=== PATIENT | female | born 1935 | race American Indian/Alaskan Native ===

== ENCOUNTER 2016-11-19 10:23 | Inpatient (IN) | payer MEDICARE ==
[2016-11-19 11:15] LABS: BASO # 0.1 K/uL (0.0-0.2); BASO % 0.8 % (0.0-2.0); EOS # 0.1 K/uL (0.0-0.7); EOS % 1.8 % (0.0-4.0); LYMPH # 1.9 K/uL (1.0-4.3); LYMPH % 28.9 % (20.0-40.0); MEAN CORPUSCULAR HEMOGLOBIN 31.4 pg (27.0-31.0); MEAN CORPUSCULAR HGB CONC 33.8 g/dL (33.0-37.0); MEAN PLATELET VOLUME 8.6 fL (7.2-11.7); MONO # 0.6 K/uL (0.0-0.8); NEUT # 3.9 K/uL (1.8-7.0); NEUT % 59.5 % (50.0-75.0); RBC 4.15 Mil/uL (3.80-5.20); RED CELL DISTRIBUTION WIDTH 13.7 % (11.5-14.5); WHITE BLOOD COUNT 6.5 K/uL (4.8-10.8)
[2016-11-19 11:25] LABS: PROTHROMBIN TIME 10.8 SECONDS (9.7-12.2)
--- NOTE | 2016-11-19 11:25 | C.PDOC ---
History Of Present Illness Patient BIBA for evaluation of difficulty ambulating/ataxia since approx 9am yesterday morning. Patient states when she stands up and tries to walk, she is unable to walk in a straight line, begins to fall to the side. She denies sensation of room spinning around her, lightheadedness, visual changes, facial droop, slurred speech, extremity weakness, sensory changes, chest pain, SOB, palpitations, ear pain, sinus pain/pressure. PMhx of HTN, hypothyroidism, hyperlipidemia, CAD with stent. Time Seen by Provider: 11/19/16 10:35 Chief Complaint (Nursing): Dizziness/Lightheaded History Per: Patient History/Exam Limitations: no limitations Onset/Duration Of Symptoms: Days (1) Current Symptoms Are (Timing): Still Present Activity At Onset Of Symptoms: Had Just Stood up Associated Symptoms Preceding Syncopal Episode: No Predromal Symptoms (Sudden Onset) Past Medical History Reviewed: Historical Data, Nursing Documentation, Vital Signs Vital Signs: Last Vital Signs Temp 97.5 F L 11/21/16 08:20 Pulse 95 H 11/21/16 08:20 Resp 20 11/21/16 08:20 BP 136/80 11/21/16 08:20 Pulse Ox 100 11/21/16 08:20 - Medical History PMH: HTN, Hypothyroidism Family History: States: No Known Family Hx - Social History Hx Alcohol Use: No Hx Substance Use: No - Immunization History Hx Tetanus Toxoid Vaccination: Yes Hx Influenza Vaccination: Yes Hx Pneumococcal Vaccination: Yes Review Of Systems Except As Marked, All Systems Reviewed And Found Negative. Constitutional: Negative for: Fever, Chills ENT: Negative for: Ear Pain Cardiovascular: Negative for: Chest Pain, Palpitations Respiratory: Negative for: Cough, Shortness of Breath Gastrointestinal: Negative for: Nausea, Vomiting, Abdominal Pain Neurological: Positive for: Incoordination. Negative for: Weakness, Numbness, Change in Speech, Confusion, Seizures, Altered Mental Status, Headache, Dizziness Physical Exam - Physical Exam Appears: Well, Non-toxic, No Acute Distress Skin: Normal Color, Warm, Dry, No Rash Head: Atraumatic, Normacephalic Eye(s): bilateral: Normal Inspection, PERRL (no nystagmus ), EOMI Ear(s): Bilateral: Normal Oral Mucosa: Moist Neck: Normal, Normal ROM Chest: Symmetrical Cardiovascular: Rhythm Regular Respiratory: Normal Breath Sounds, No Rales, No Rhonchi, No Wheezing Gastrointestinal/Abdominal: Normal Exam, Bowel Sounds, No Tenderness Extremity: Normal ROM, No Pedal Edema, No Calf Tenderness, No Deformity Neurological/Psych: Oriented x3, Normal Speech, Normal Cognition, Normal Cranial Nerves, No Cerebellar Signs, Normal Motor, Normal Sensation, Normal Reflexes, No Dysarthria, Other (noemal finger to nose ) Gait: Unsteady (ataxic gait) ED Course And Treatment - Laboratory Results Result Diagrams: 11/19/16 11:08 11/20/16 07:17 ECG: Interpreted By Me, Viewed By Me (NSR 60 bpm, left axis deviation, Q waves III, aVF, no acute ST/T wave changes) ECG Interpretation: Abnormal O2 Sat by Pulse Oximetry: 100 (RA) Pulse Ox Interpretation: Normal - CT Scan/US CT HEAD Other Rad Studies (CT/US): Read By Radiologist, Radiology Report Reviewed CT/US Interpretation: Accession No. : [id number]. Patient Name / ID : RUPINDER DELEON / [id number]. Exam Date : 11/19/2016 11:21:14 ( Approved ). Study Comment : Sex / Age : F / [id number]. Creator : PATIENCE MEDRANO MD. Dictator : PATIENCE MEDRANO MD. Lighting Designer : Surg Rn : PATIENCE MEDRANO MD. Approver2 : Report Date : 11/19/2016 11:57:57. My Comment : . PROCEDURE: CT HEAD WITHOUT CONTRAST. HISTORY: ATAXIA NEW ONSET. COMPARISON: None available. TECHNIQUE: Axial computed tomography images were obtained through the head/ brain without intravenous contrast. Radiation dose: Total exam DLP = 821.50 mGy-cm. This CT exam was performed using one or more of the following dose reduction techniques: Automated exposure control, adjustment of the mA and/or kV according to patient size, and/or use of iterative reconstruction technique. FINDINGS: HEMORRHAGE: No intracranial hemorrhage. BRAIN: There are severe chronic microangiopathic changes. There is no mass, mass effect or abnormal extra-axial fluid collection. There are coarse atherosclerotic calcifications in the cavernous carotid arteries. VENTRICLES: There is mild age-related global parenchymal volume loss and proportionate enlargement of the ventricles and cortical sulci. CALVARIUM: The skull base and calvarium are normal. PARANASAL SINUSES: Predominantly clear. MASTOID AIR CELLS: Predominantly clear. OTHER FINDINGS: None. IMPRESSION: No acute intracranial abnormality.If there is a persistent focal neurologic deficit and an ongoing clinical concern for acute infarction, an MRI of the brain without intravenous contrast would be a more sensitive modality for evaluation of hyperacute/acute ischemic infarction. Severe chronic microangiopathic changes and mild age- related global parenchymal volume loss. Progress Note: Blood work, CT head, EKG ordered and reviewed. MRI stroke protocol ordered - result will be followed by admitting doctor. Patient given PO ASA after CT head (-) for bleed. Discussed patient with Dr. Ochoa, who agrees with admission to his service for ataxia, r/o CVA. - Physician Consult Information Physician Contacted: Jose Mohr Outcome Of Conversation: Discussed patient with her PMD, he requests admission under Dr. Sadie Ochoa with Dr. Delvin Redman for neurology. Pending call back. NIHSS Stroke Scale - Date/Time Evaluation Performed Date Performed: 11/19/16 Time Performed: 10:30 - How Severe is the Stoke Level of Consciousness: 0=Alert LOC to Questions: 0=Both comments correct LOC to commands: 0=Obeys both correctly Best Gaze: 0=Normal Visual: 0=No visual loss Facial: 0=Normal Motor Arm - Left: 0=No drift Motor Arm - Right: 0=No drift Motor Leg - Left: 0=No drift Motor Leg - Right: 0=No drift Limb Ataxia: 1=Present Upper or Lower Sensory: 0=Normal Best Language: 0=No aphasia Dysarthia: 0=Normal articulation Extinction & Inattention (Neglect): 0=Normal, no object Score: 1 Severity Of Stroke: 1-4= Minor Stroke rTPA Inclusion/Exclusion - Refusal of Treatment Patient Refused Treatment: No - Inclusion Criteria for Altepase Patient is 18 years or Older: Yes The Clinical Diagnosis of Ischemic Stroke That is Causing a Potentially Disabling Neurological Deficit: Yes Time of Onset is Well Established to be Less Than 270 Minute Before Treatment Would Begin: No Risk/Benefit Discussed With Patient/Family Member Present: No Disposition - Disposition Disposition: HOSPITALIZED Disposition Time: 14:21 Condition: STABLE - Clinical Impression Clinical Impression: Ataxia, CVA (cerebral vascular accident)
[2016-11-19 11:31] LABS: ALBUMIN 3.9 g/dL (3.5-5.0)
[2016-11-19 11:34] LABS: ALB/GLOB RATIO 1.4 (1.0-2.1); ALT/SGPT 29 U/L (9-52); AST/SGOT 21 U/L (14-36); BLOOD UREA NITROGEN 18 mg/dL (7-17); CALCIUM 9.8 mg/dl (8.6-10.4); GFR AFRICAN-AMERICAN > 60; GFR NON-AFRICAN AMERICAN 53
[2016-11-19 11:35] LABS: HDL CHOLESTEROL 29 mg/dL (30-70)
[2016-11-19 11:43] LABS: CK-MB 0.77 ng/mL (0.0-3.38)
[2016-11-19 11:48] LABS: LDL CHOLESTEROL 62 mg/dL (0-129)
--- NOTE | 2016-11-19 11:59 | CT ---
PROCEDURE: CT HEAD WITHOUT CONTRAST. HISTORY: ATAXIA NEW ONSET COMPARISON: None available. TECHNIQUE: Axial computed tomography images were obtained through the head/brain without intravenous contrast. Radiation dose: Total exam DLP = 821.50 mGy-cm. This CT exam was performed using one or more of the following dose reduction techniques: Automated exposure control, adjustment of the mA and/or kV according to patient size, and/or use of iterative reconstruction technique. FINDINGS: HEMORRHAGE: No intracranial hemorrhage. BRAIN: There are severe chronic microangiopathic changes. There is no mass, mass effect or abnormal extra-axial fluid collection. There are coarse atherosclerotic calcifications in the cavernous carotid arteries. VENTRICLES: There is mild age-related global parenchymal volume loss and proportionate enlargement of the ventricles and cortical sulci. CALVARIUM: The skull base and calvarium are normal. PARANASAL SINUSES: Predominantly clear. MASTOID AIR CELLS: Predominantly clear. OTHER FINDINGS: None. IMPRESSION: No acute intracranial abnormality.If there is a persistent focal neurologic deficit and an ongoing clinical concern for acute infarction, an MRI of the brain without intravenous contrast would be a more sensitive modality for evaluation of hyperacute/acute ischemic infarction. Severe chronic microangiopathic changes and mild age-related global parenchymal volume loss.
[2016-11-19] MEDS ORDERED: Aspirin 325 mg EC Tablets PO ONE (14:49)
--- NOTE | 2016-11-19 16:31 | MRI ---
PROCEDURE: MRI BRAIN WITHOUT CONTRAST HISTORY: ataxia, r/o cva COMPARISON: Noncontrast head CT performed the same day TECHNIQUE: Multiplanar, multisequence MR images of the brain were obtained without intravenous contrast enhancement. FINDINGS: HEMORRHAGE: None DWI: There is a focal round area of restricted diffusion involving the medial aspect of the left brachium pontis and lateral aspect of the left superior cerebellar peduncle with corresponding increased T2/FLAIR signal. BRAIN PARENCHYMA: There are severe chronic microangiopathic changes. There is no mass, mass effect or abnormal extra-axial fluid collection. The midline sagittal structures are normal. VENTRICLES: There is moderate age-related global parenchymal volume loss and proportionate enlargement of the ventricles and cortical sulci. CRANIUM: There is normal bone marrow signal pattern. ORBITS: Grossly unremarkable. PARANASAL SINUSES/MASTOIDS: Predominantly clear. VASCULAR SYSTEM: There are normal signal voids in the larger intracranial arteries. OTHER FINDINGS: None. IMPRESSION: 1. Findings are consistent with acute infarction involving the medial aspect of the left brachium pontis and lateral aspect of the left superior cerebellar peduncle. 2. Severe chronic microangiopathic changes and moderate age-related global parenchymal volume loss. Important findings were discussed with nurse Robson Cuellar 11/19/2016 at 4:25 p.m.
[2016-11-19] MEDS: (Novolog) Insulin Aspart, Recombinant 100 u/ml 10 ml vial SC SCH (21:33)
--- NOTE | 2016-11-20 00:48 | CON ---
HISTORY OF PRESENT ILLNESS: This is a 81-year-old black female with past medical history of hypertension, hypothyroidism, came here with ambulating. Symptoms started yesterday in the morning. When the patient tried to walk, she was unable to walk straight line and was swing to one side. Denies any spinning sensation. No lightheadedness. No slurred speech. No weakness. PAST MEDICAL HISTORY: Hypertension, hypothyroidism, hyperlipidemia, coronary artery disease . FAMILY HISTORY: Unknown. SOCIAL HISTORY: Does not smoke, does not drink. REVIEW OF SYSTEMS: A 10-point review of system was negative except ataxia. PHYSICAL EXAMINATION VITAL SIGNS: Blood pressure 165/70. HEENT: Normocephalic and atraumatic. NECK: Supple. NEUROLOGIC: Awake,alert and oriented x3. No aphasia. Cranial nerves II through XII tested. Pupil reactive. EOM intact. Visual hebert full. No facial asymmetry. Tongue midline. Motor examination, moves all the extremities spontaneously. Deep tendon reflexes 1+. Both plantars are downgoing. Sensory appears intact. Cerebellar and Gait deferred. LABORATORY DATA: WBC 6.5, hemoglobin 13, hematocrit 38.6, platelet 182. Sodium 141, potassium 4.7, chloride 104, CO2 of 18, glucose 90, BUN 18, creatinine 1. IMPRESSION: Brain stem infarct and MRI shows consistent acute infarction involving medial aspect of the left brachium and lateral aspect of the left superior cerebellar peduncle and that is what causing ataxia. PLAN: The patient needs carotid Doppler and Plavix 75 mg and physical therapy for ambulation. Thank you, we will follow up. Delmer Redman MD
[2016-11-20] MEDS: Levothyroxine 25 MCG TAB PO SCH (05:34)
[2016-11-20] MEDS ORDERED: Levothyroxine 50 MCG TAB PO SCH (06:30)
[2016-11-20] MEDS: (Novolog) Insulin Aspart, Recombinant 100 u/ml 10 ml vial SC SCH ×4 (07:24→21:30)
[2016-11-20 07:49] LABS: ALB/GLOB RATIO 1.4 (1.0-2.1); ALBUMIN 3.8 g/dL (3.5-5.0); ALT/SGPT 24 U/L (9-52); AST/SGOT 20 U/L (14-36); BLOOD UREA NITROGEN 13 mg/dL (7-17); CALCIUM 9.4 mg/dl (8.6-10.4); GFR AFRICAN-AMERICAN > 60; GFR NON-AFRICAN AMERICAN > 60
--- NOTE | 2016-11-20 08:50 | CP.PCM.HP ---
History of Present Illness - History of Present Illness History of Present Illness: 81 y/o female with NIDDM, hyperlipidemia, Hypothyroidism and HTN. patient on 8 morning suddenly noted to be " imbalance". She was sent to ER and ER was noted to be ataxic. Pt admitted c/o likely will fall and hurt herself. MRI (+) small CVA on L brainstem/ cerebellum Present on Admission - Present on Admission Any Indicators Present on Admission: Yes History of DVT/PE: No History of Uncontrolled Diabetes: No Urinary Catheter: No Decubitus Ulcer Present: No Review of Systems - Review of Systems Systems not reviewed;Unavailable: Acuity of Condition - Constitutional Constitutional: Headache, Weakness. absent: Anorexia, Chills, Malaise, Weight Loss - EENT Eyes: absent: Requires Corrective Lenses, Sees Flashes, Spots in Vision Ears: absent: Decreased Hearing, Ear Discharge, Ear Pain Nose/Mouth/Throat: Sinus Pressure. absent: Nasal Congestion, Post Nasal Drip, Bleeding Gums, Hoarsness, Odynophagia, Neck Pain - Cardiovascular Cardiovascular: absent: Chest Pain, Diaphoresis, Dyspnea, Edema, Irregular Heart Rhythm, Leg Edema, Palpitations - Respiratory Respiratory: absent: Cough, Hemoptysis, Dyspnea on Exertion, Snoring, Chest Congestion, Excessive Mucous Production, Change in Mucous Color - Gastrointestinal Gastrointestinal: absent: Coffee Ground Emesis, Constipation, Heartburn, Hematochezia, Nausea - Genitourinary Genitourinary: absent: Difficulty Urinating, Dysuria, Hematuria, Nocturia - Reproductive: Female Reproductive:Female: absent: Light Menses, Dysmenorrhea, Dyspareunia, Sexual Dysfunction - Musculoskeletal Musculoskeletal: Abnormal Gait. absent: Atrophy, Back Pain, Joint Swelling, Loss of Height, Myalgias - Integumentary Integumentary: absent: Bleeding Lesions, Changing Lesions, Rash, Skin Pain, Sores - Neurological Neurological: Abnormal Gait, Disequilibrium, Dizziness, Lack of Coordination. absent: Abnormal Hearing, Numbness, Frequent Falls, Headaches, Loss of Vision, Radicular Pain - Psychiatric Psychiatric: Anxiety. absent: Confusion, Depression, Hopelessness, Panic Attacks, Suicidal Ideation Past Patient History - Infectious Disease Hx of Infectious Diseases: None - Past Medical History & Family History Past Medical History?: Yes - Past Social History Smoking Status: Former Smoker - CARDIAC Hx Hypertension: Yes Other/Comment: CAD - ENDOCRINE/METABOLIC Hx Diabetes Mellitus Type 2: Yes Hx Hypothyroidism: Yes - MUSCULOSKELETAL/RHEUMATOLOGICAL Hx Falls: No - PSYCHIATRIC Hx Psychophysiologic Disorder: No Hx Substance Use: No - SURGICAL HISTORY Hx Cardiac Catheterization: Yes (stents) Hx Vascular Access Device: Yes Other/Comment: Removal of R kidney - ANESTHESIA Hx Anesthesia: Yes Hx Anesthesia Reactions: No Hx Malignant Hyperthermia: No Meds Allergies/Adverse Reactions: Allergies Allergy/AdvReac Type Severity Reaction Status Date / Time FISH Allergy Verified 11/19/16 10:28 Penicillins Allergy Verified 11/19/16 10:28 Physical Exam - Constitutional Appears: No Acute Distress - Eye Exam Eye Exam: Normal appearance - ENT Exam ENT Exam: Mucous Membranes Moist, Normal Oropharynx - Neck Exam Neck exam: Positive for: Full Rom. Negative for: Lymphadenopathy, Meningismus - Respiratory Exam Respiratory Exam: Clear to Auscultation Bilateral. absent: Rales, Rhonchi, Wheezes - Cardiovascular Exam Cardiovascular Exam: REGULAR RHYTHM, +S1, +S2, Systolic Murmur. absent: Gallop , JVD - GI/Abdominal Exam GI & Abdominal Exam: Soft. absent: Tenderness - Extremities Exam Extremities exam: Positive for: calf tenderness, full ROM. Negative for: joint swelling - Neurological Exam Neurological exam: Abnormal Gait, Alert, CN II-XII Intact ((+) nygstamus) Results - Vital Signs Recent Vital Signs: Last Vital Signs Temp 98.3 F 11/20/16 07:40 Pulse 62 11/20/16 07:40 Resp 18 11/20/16 07:40 BP 115/65 11/20/16 07:40 Pulse Ox 100 11/20/16 07:40 - Labs Result Diagrams: 11/19/16 11:08 11/20/16 07:17 Labs: Laboratory Results - last 24 hr 11/19/16 11/19/16 11/20/16 17:08 21:24 06:26 Sodium Potassium Chloride Carbon Dioxide Anion Gap BUN Creatinine Est GFR ( Amer) Est GFR (Non-Af Amer) POC Glucose (mg/dL) 132 H 182 H 124 H Random Glucose Calcium Total Bilirubin AST ALT Alkaline Phosphatase Total Protein Albumin Globulin Albumin/Globulin Ratio TSH 3rd Generation 11/20/16 07:17 Sodium 141 Potassium 3.9 Chloride 103 Carbon Dioxide 24 Anion Gap 18 BUN 13 Creatinine 0.8 Est GFR ( Amer) > 60 Est GFR (Non-Af Amer) > 60 POC Glucose (mg/dL) Random Glucose 103 Calcium 9.4 Total Bilirubin 0.3 AST 20 ALT 24 Alkaline Phosphatase 62 Total Protein 6.6 Albumin 3.8 Globulin 2.8 Albumin/Globulin Ratio 1.4 TSH 3rd Generation 0.05 L - EKG Data EKG Interpreted by: Myself EKG shows normal: Sinus rhythm Rate: Normal Assessment & Plan - Assessment and Plan (Free Text) Assessment: Acute pontine/ cerebellar CVA - infarct Hypothyroidism NIDDM; HTN, Hyperlipidemia Antivert TID and rehab Meds adjusted for Metformin and Levothyroxine Change ASA to Plavix Neuro consulted called yesterday
[2016-11-20] MEDS ORDERED: Metoprolol Succinate 25 mg XL Tab PO SCH (10:00)
--- NOTE | 2016-11-20 11:07 | CARD ---
APPROVED REPORT EKG Measurement Heart [id number] <Conclusion> Normal sinus rhythm Minimal voltage criteria for LVH, may be normal variant Inferior infarct, age undetermined Cannot rule out Anterior infarct, age undetermined Abnormal ECG
--- NOTE | 2016-11-20 16:26 | VASCLAB ---
PROCEDURE: HISTORY: Code Stroke COMPARISON: None available. TECHNIQUE: Grayscale and duplex Doppler evaluation of the cervical carotid and vertebral arteries were performed. The common carotid, carotid bifurcations and cervical Internal Carotid Artery (ICA) and proximal External Carotid Artery (ECA) were evaluated. The vertebral arteries were evaluated for gross patency and flow direction. Report prepared by DAVIE Rios FINDINGS: RIGHT CAROTID ARTERIES: 1. Common Carotid Artery: Heterogeneous plaque formation of the right common carotid artery. Intimal hyperplasia. Maximum Peak Systolic velocity: 85 cm/sec: End-diastolic velocity 16 cm/sec. 2. Carotid Bifurcation: Minimal calcific plaque formation. Maximum Peak Systolic velocity: 53 cm/sec: End-diastolic velocity 9 cm/sec. 3. Internal Carotid Artery: Multifocal plaque. Plaque description: Calcific 3.1. Proximal Segment: Peak systolic velocity 66 cm/sec: End-diastolic velocity 22 cm/sec - % stenosis 0-15% 3.2. Middle Segment: Peak systolic velocity 76 cm/sec: End-diastolic velocity 25 cm/sec - % stenosis 0-15% 3.3. Distal Segment: Peak systolic velocity 71 cm/sec: End-diastolic velocity 22 cm/sec - % stenosis 0-15% 4. External Carotid Artery: Heterogeneous plaque formation. Peak systolic velocity 202 cm/sec 5. ICA/CCA Ratio: 1.2 LEFT CAROTID ARTERIES: 1. Common Carotid Artery: Heterogeneous plaque formation of the left common carotid artery. Intimal hyperplasia per Maximum Peak Systolic velocity: 101 cm/sec: End-diastolic velocity 19 cm/sec. 2. Carotid Bifurcation: Mild calcific plaque formation. Maximum Peak Systolic velocity: 66 cm/sec: End-diastolic velocity 10 cm/sec. 3. Internal Carotid Artery: Multifocal plaque. Plaque description: Calcific 3.1. Proximal Segment: Peak systolic velocity 72 cm/sec: End-diastolic velocity 18 cm/sec - % stenosis 0-15% 3.2. Middle Segment: Peak systolic velocity 80 cm/sec: End-diastolic velocity 22 cm/sec - % stenosis 0-15% 3.3. Distal Segment: Peak systolic velocity 63 cm/sec: End-diastolic velocity 19 cm/sec - % stenosis 0-15% 4. External Carotid Artery: Heterogeneous plaque formation. Peak systolic velocity 127 cm/sec 5. ICA/CCA Ratio: 1.0 VERTEBRAL ARTERIES: 1. Right Vertebral Artery: The right vertebral artery flow direction is antegrade. 2. Left Vertebral Artery: The left vertebral artery flow direction is antegrade. OTHER FINDINGS: 1. Right Brachial Blood pressure: 130 mmHg. 2. Left Brachial Blood pressure: 130 mmHg. IMPRESSION: RIGHT: Duplex scan does not suggest hemodynamically significant stenosis of the right extracranial carotid arteries. LEFT: Duplex scan does not suggest hemodynamically significant stenosis of the left extracranial carotid arteries.
[2016-11-20 16:45] VITALS: RESP 20
--- NOTE | 2016-11-20 17:04 | PN ---
DATE: 11/20/2016 CHIEF COMPLAINT: Followup for ataxia, status post acute infarction of the medial aspect of the left brachium pontis and lateral aspect of the cerebral peduncles. SUBJECTIVE: The patient is a 81-year-old woman. The patient is seen and examined at bedside. She is mildly ataxic,but denies any changes sense of vision, spinning sensation of the room, or lightheadedness. Her ataxia is from the acute infarct in the medial aspect of the left brachium pontis and lateral aspect of the cerebral peduncles. She is on aspirin 81 and Plavix 75, and Crestor 5 mg for stroke prevention. No acute medications overnight. FAMILY HISTORY: Noncontributory. SOCIAL HISTORY: No illicit drug use, smoking, or EtOH abuse. PAST MEDICAL HISTORY: Hypertension, diabetes, hypothyroidism, hyperlipidemia, and coronary artery disease with stent. ALLERGIES: . MEDICATIONS: Reviewed by nurse reconciliation sheet. REVIEW OF SYSTEMS: A 14-point review of systems negative except per HPI. PHYSICAL EXAMINATION: GENERAL: The patient is sitting up in bed, in no acute distress. VITAL SIGNS: Temperature 98.3, pulse rate of 62, blood pressure 150/65, respiratory rate 18, and oxygen saturation is 100% on room air. HEENT: Atraumatic, normocephalic. PERRLA. Extraocular muscles intact. NECK: Supple. No JVD. No adenopathy noted. HEART: S1 and S2. Normal rate and rhythm. No murmur, rubs, or gallops. LUNGS: Clear to auscultation. No adventitious sounds. ABDOMEN: Soft, nontender, nondistended. Bowel sounds are present. EXTREMITIES: No clubbing. No cyanosis. Peripheral pulses 2+ felt bilaterally. NEUROLOGIC: The patient is alert, oriented to person, place, month and year. Speech is fluent without any errors. Cranial nerves II through XII intact. Motor exam: Moves all extremities equally. No pronator drift seen. Sensory exam to light touch, pinprick, proprioception, is intact. Decreased vibration at the toes. DTRs are 2+ bilaterally at the ankles. Coordination, [id number] on the left is slightly dissymmetric, otherwise rest of it is intact. Gait deferred for now. LABORATORY DATA: A1c is 5.8. Sodium 142, potassium 3.9, chloride 103, carbon dioxide 24, BUN 13, creatinine 0.8, and random glucose 103. ASSESSMENT AND PLAN: A 81-year-old woman with past medical history of hypertension, hypothyroidism, diabetes, and dyslipidemia, who came in with difficulty walking and ataxia and found to have on acute infarction of medial aspect of the brachium pontis and the left aspect of the left superior cerebral peduncles, which was secondary to a diffuse atherosclerotic disease. At this time, I recommend: 1. Aspirin 81, Plavix 75, and Crestor 5 mg for stroke prevention. 2. Physical therapy evaluation for gait imbalance given her ataxia from the stroke. 3. Keep her blood pressure in the 140-180. 4. P.r.n. meclizine with acute onset of sensation of the room spinning. 5. Continue current present medical management and clinically stable from the neurological standpoint. Thank you for this consult. Joce Redman MD
[2016-11-21] MEDS: Levothyroxine 25 MCG TAB PO SCH (06:07)
[2016-11-21] MEDS: (Novolog) Insulin Aspart, Recombinant 100 u/ml 10 ml vial SC SCH ×2 (08:08→12:18)
--- NOTE | 2016-11-21 08:33 | CP.PCM.PN ---
Subjective - Date & Time of Evaluation Date of Evaluation: 11/21/16 Time of Evaluation: 08:18 - Subjective Subjective: Pt feels imbalance; Also noted HR dec to 45 at lowest No CP, no cough, no SOB, no diarrhea Objective - Vital Signs/Intake and Output Vital Signs (last 24 hours): Temp Pulse Resp BP Pulse Ox 98.1 F 60 20 115/77 97 11/20/16 23:15 11/20/16 23:15 11/20/16 23:15 11/20/16 23:15 11/20/16 23:15 - Medications Medications: Current Medications Aspirin (Aspirin Chewable) 81 mg PO DAILY [facility] Last Admin: 11/20/16 10:09 Dose: 81 mg Clopidogrel Bisulfate (Plavix) 75 mg PO DAILY [facility] Last Admin: 11/20/16 10:09 Dose: 75 mg Heparin Sodium (Porcine) (Heparin) 5,000 units SC Q12 [facility] Last Admin: 11/20/16 21:30 Dose: 5,000 units Insulin Aspart (Novolog) 0 unit SC ACHS [facility] PRN Reason: Protocol Last Admin: 11/21/16 08:08 Dose: Not Given Levothyroxine Sodium (Synthroid) 25 mcg PO DAILY@0630 [facility] Last Admin: 11/21/16 06:07 Dose: 25 mcg Losartan Potassium (Cozaar) 100 mg PO DAILY [facility] Last Admin: 11/20/16 10:09 Dose: 100 mg Meclizine HCl (Antivert) 12.5 mg PO TID [facility] Last Admin: 11/20/16 18:18 Dose: 12.5 mg Metformin HCl (Glucophage) 500 mg PO DAILY [facility] Last Admin: 11/20/16 10:09 Dose: 500 mg Rosuvastatin Calcium (Crestor) 5 mg PO [facility] Last Admin: 11/20/16 21:30 Dose: 5 mg - Labs Labs: 11/20/16 07:17 PT 10.8 SECONDS (9.7-12.2) 11/19/16 11:08 INR 1.0 11/19/16 11:08 APTT 27 SECONDS (21-34) 11/19/16 11:08 - Constitutional Appears: No Acute Distress - Eye Exam Eye Exam: Periorbital tenderness - ENT Exam ENT Exam: Mucous Membranes Moist - Neck Exam Neck Exam: Full ROM. absent: Normal Inspection, Thyromegaly - Respiratory Exam Respiratory Exam: Clear to Ausculation Bilateral. absent: Rales, Rhonchi, Wheezes - Cardiovascular Exam Cardiovascular Exam: +S1, +S2. absent: Gallop, REGULAR RHYTHM, JVD - GI/Abdominal Exam GI & Abdominal Exam: Soft. absent: Tenderness, Mass - Extremities Exam Extremities Exam: Full ROM. absent: Calf Tenderness, Joint Swelling, Normal Capillary Refill, Pedal Edema Assessment and Plan - Assessment and Plan (Free Text) Assessment: Bradycardia; Ataxia Cerebellar infarct HTN, NIDDM, Hypothyroid, hyperlipidemia ? eval c/o PT - will re order Cotn meds exc Metoprolol
--- NOTE | 2016-11-21 09:48 | CP.PCM.CON ---
History of Present Illness - History of Present Illness History of Present Illness: CC stroke HPI 81 y/o female with NIDDM, hyperlipidemia, Hypothyroidism and HTN. patient on 8 morning suddenly noted to be " imbalance". She was sent to ER and ER was noted to be ataxic. Pt admitted c/o likely will fall and hurt herself. MRI (+) small CVA on L brainstem/ cerebellum Review of Systems - Constitutional Constitutional: Weakness - EENT Ears: Tinnitus - Neurological Neurological: Disequilibrium, Dizziness Past Patient History - Infectious Disease Hx of Infectious Diseases: None - Past Medical History & Family History Past Medical History?: Yes - Past Social History Smoking Status: Former Smoker - CARDIAC Hx Cardiac Disorders: Yes (CAD) Hx Hypercholesterolemia: Yes Hx Hypertension: Yes - ENDOCRINE/METABOLIC Hx Diabetes Mellitus Type 2: Yes Hx Hypothyroidism: Yes - MUSCULOSKELETAL/RHEUMATOLOGICAL Hx Falls: No - PSYCHIATRIC Hx Psychophysiologic Disorder: No Hx Substance Use: No - SURGICAL HISTORY Hx Cardiac Catheterization: Yes (stents) Hx Vascular Access Device: Yes Other/Comment: Removal of R kidney - ANESTHESIA Hx Anesthesia: Yes Hx Anesthesia Reactions: No Hx Malignant Hyperthermia: No Meds Allergies/Adverse Reactions: Allergies Allergy/AdvReac Type Severity Reaction Status Date / Time FISH Allergy Verified 11/19/16 10:28 Penicillins Allergy Verified 11/19/16 10:28 - Medications Medications: Current Medications Aspirin (Aspirin Chewable) 81 mg PO DAILY [facility] Last Admin: 11/20/16 10:09 Dose: 81 mg Clopidogrel Bisulfate (Plavix) 75 mg PO DAILY [facility] Last Admin: 11/20/16 10:09 Dose: 75 mg Heparin Sodium (Porcine) (Heparin) 5,000 units SC Q12 [facility] Last Admin: 11/20/16 21:30 Dose: 5,000 units Insulin Aspart (Novolog) 0 unit SC ACHS [facility] PRN Reason: Protocol Last Admin: 11/21/16 08:08 Dose: Not Given Levothyroxine Sodium (Synthroid) 25 mcg PO DAILY@0630 [facility] Last Admin: 11/21/16 06:07 Dose: 25 mcg Losartan Potassium (Cozaar) 100 mg PO DAILY [facility] Last Admin: 11/20/16 10:09 Dose: 100 mg Meclizine HCl (Antivert) 12.5 mg PO TID [facility] Last Admin: 11/20/16 18:18 Dose: 12.5 mg Metformin HCl (Glucophage) 500 mg PO DAILY [facility] Last Admin: 11/20/16 10:09 Dose: 500 mg Rosuvastatin Calcium (Crestor) 5 mg PO [facility] Last Admin: 11/20/16 21:30 Dose: 5 mg Physical Exam - Constitutional Appears: Non-toxic - Head Exam Head Exam: NORMAL INSPECTION - Eye Exam Eye Exam: absent: Scleral icterus - ENT Exam ENT Exam: Mucous Membranes Moist - Neck Exam Neck exam: Positive for: Full Rom - Respiratory Exam Respiratory Exam: Decreased Breath Sounds - Cardiovascular Exam Cardiovascular Exam: REGULAR RHYTHM - GI/Abdominal Exam GI & Abdominal Exam: Soft - Extremities Exam Extremities exam: Negative for: calf tenderness, pedal edema - Neurological Exam Additional comments: ataxic gait Results - Vital Signs Recent Vital Signs: Last Vital Signs Temp 98.1 F 11/20/16 23:15 Pulse 60 11/20/16 23:15 Resp 20 11/20/16 23:15 BP 115/77 11/20/16 23:15 Pulse Ox 97 11/20/16 23:15 - Labs Result Diagrams: 11/19/16 11:08 11/20/16 07:17 Labs: Laboratory Results - last 24 hr 11/20/16 11/20/16 11/20/16 07:17 11:29 17:26 POC Glucose (mg/dL) 143 H 116 H Hemoglobin A1c 5.8 11/20/16 11/21/16 21:39 06:15 POC Glucose (mg/dL) 147 H 101 Hemoglobin A1c Assessment & Plan - Assessment and Plan (Free Text) Assessment: Acute CVA HTN T2dm CAD Lipid disorder Plan: ECHO NANDINI Consider Loop recorder implant.
--- NOTE | 2016-11-21 10:49 | CARD ---
APPROVED REPORT EXAM: Two-dimensional and M-mode echocardiogram with Doppler and color Doppler. Other Information Quality : GoodRhythm : NSR INDICATION CVA/TIA RISK FACTORS Hypertension Hyperlipidemia M-Mode DIMENSIONS RVDd1.70 (2.1-3.2cm)Left Atrium (MM)3.71 (2.5-4.0cm) IVSd0.83 (0.7-1.1cm)Aortic Root2.50 (2.2-3.7cm) LVDd3.96 (4.0-5.6cm)Aortic Cusp Exc.1.21 (1.5-2.0cm) PWd0.97 (0.7-1.1cm)FS (%) 34 % LVDs2.60 (2.0-3.8cm)LVEF (%)64 (>50%) Aortic Valve AoV Peak Bztsilcu933.5cm/Misa Peak GR.11mmHg Mitral Valve MV E Drmkygsj33.9cm/sMV A Jiecozhy219.4cm/sE/A ratio0.7 TDI E/Lateral E'0.0E/Medial E'0.0 Tricuspid Valve TR Peak Wszyvfga526yv/sTR Peak Gr.[id number] LEFT VENTRICLE The left ventricle is normal size. There is normal left ventricular wall thickness. The left ventricular function is normal. The left ventricular ejection fraction is within the normal range. No regional wall motion abnormalities noted. Transmitral Doppler flow pattern is Grade I-abnormal relaxation pattern. No left ventricle thrombus noted on this study. There is no ventricular septal defect visualized. There is no left ventricular aneurysm. There is no mass noted in the left ventricle. RIGHT VENTRICLE The right ventricle is normal size. There is normal right ventricular wall thickness. The right ventricular systolic function is normal. ATRIA The left atrium size is normal. The right atrium size is normal. The interatrial septum is intact with no evidence for an atrial septal defect. AORTIC VALVE The aortic valve is normal in structure and function. No aortic regurgitation is present. There is no aortic valvular stenosis. There is no aortic valvular vegetation. MITRAL VALVE The mitral valve is normal in structure and function. There is no evidence of mitral valve prolapse. There is no mitral valve stenosis. Mitral regurgitation is mild. TRICUSPID VALVE The tricuspid valve is normal in structure and function. There is mild tricuspid regurgitation. Right ventricular systolic pressure is estimated at 30-40 mmHg. There is no tricuspid valve prolapse or vegetation. There is no tricuspid valve stenosis. PULMONIC VALVE The pulmonary valve is normal in structure and function. There is no pulmonic valvular regurgitation. There is no pulmonic valvular stenosis. GREAT VESSELS The aortic root is normal in size. The ascending aorta is normal in size. The pulmonary artery is normal. The IVC is normal in size and collapses >50% with inspiration. PERICARDIAL EFFUSION The pericardium appears normal. There is no pleural effusion. <Conclusion> The left ventricular function is normal. The left ventricular ejection fraction is within the normal range. No regional wall motion abnormalities noted. Mitral regurgitation is mild.
--- NOTE | 2016-11-21 13:42 | CP.PCM.PN ---
Objective - Vital Signs/Intake and Output Vital Signs (last 24 hours): Temp Pulse Resp BP Pulse Ox 98.1 F 60 20 115/77 97 11/20/16 23:15 11/20/16 23:15 11/20/16 23:15 11/20/16 23:15 11/20/16 23:15 - Medications Medications: Current Medications Aspirin (Aspirin Chewable) 81 mg PO DAILY [facility] Last Admin: 11/21/16 10:24 Dose: 81 mg Clopidogrel Bisulfate (Plavix) 75 mg PO DAILY [facility] Last Admin: 11/21/16 10:24 Dose: 75 mg Heparin Sodium (Porcine) (Heparin) 5,000 units SC Q12 [facility] Last Admin: 11/21/16 10:23 Dose: 5,000 units Insulin Aspart (Novolog) 0 unit SC ACHS [facility] PRN Reason: Protocol Last Admin: 11/21/16 12:18 Dose: Not Given Levothyroxine Sodium (Synthroid) 25 mcg PO DAILY@0630 [facility] Last Admin: 11/21/16 06:07 Dose: 25 mcg Losartan Potassium (Cozaar) 100 mg PO DAILY [facility] Last Admin: 11/21/16 10:23 Dose: 100 mg Meclizine HCl (Antivert) 12.5 mg PO TID [facility] Last Admin: 11/21/16 10:24 Dose: 12.5 mg Metformin HCl (Glucophage) 500 mg PO DAILY [facility] Last Admin: 11/21/16 10:23 Dose: 500 mg Rosuvastatin Calcium (Crestor) 5 mg PO HS [facility] Last Admin: 11/20/16 21:30 Dose: 5 mg - Labs Labs: 11/20/16 07:17 PT 10.8 SECONDS (9.7-12.2) 11/19/16 11:08 INR 1.0 11/19/16 11:08 APTT 27 SECONDS (21-34) 11/19/16 11:08
[2016-11-21 14:35] VITALS: BP 136/80; PULSE 95; TEMP 97.5; O2SAT 100
== END 2016-11-21 15:30 | DRG 66 ==
LOC: C.ER 10:23 → C.6T 14:21 → C.5T 11-20 21:12
PROVIDERS: ADMIT Internal Medicine; ATTEND Internal Medicine
DX: I63.9 Cerebral infarction, unspecified (principal); E11.9 Type 2 diabetes mellitus without complications; R00.1 Bradycardia, unspecified; I10 Essential (primary) hypertension; E03.9 Hypothyroidism, unspecified; E78.5 Hyperlipidemia, unspecified; I25.10 Atherosclerotic heart disease of native coronary artery without angina pectoris; Z95.5 Presence of coronary angioplasty implant and graft; R26.0 Ataxic gait; Z87.891 Personal history of nicotine dependence; Z79.4 Long term (current) use of insulin

== ENCOUNTER 2018-07-02 11:27 | Inpatient (IN) | payer MEDICARE ==
[2018-07-02 11:29] VITALS: BMI 27.8
[2018-07-02 12:20] LABS: BASO % 0.7 % (0.0-2.0); EOS # 0.2 K/uL (0.0-0.7); EOS % 4.3 % (0.0-4.0); HEMOGLOBIN 14.6 g/dL (11.0-16.0); LYMPH # 2.1 K/uL (1.0-4.3); MEAN CORPUSCULAR HEMOGLOBIN 31.8 pg (27.0-31.0); MEAN CORPUSCULAR HGB CONC 33.2 g/dL (33.0-37.0); MEAN PLATELET VOLUME 8.5 fL (7.2-11.7); MONO # 0.7 K/uL (0.0-0.8); MONO % 13.6 % (0.0-10.0); NEUT # 2.2 K/uL (1.8-7.0); NEUT % 41.4 % (50.0-75.0); NRBC % 0.1 % (0.0-2.0); RBC 4.6 Mil/uL (3.80-5.20); WHITE BLOOD COUNT 5.3 K/uL (4.8-10.8)
[2018-07-02 12:21] LABS: MEAN CELL VOLUME 95.9 fL (81.0-99.0)
--- NOTE | 2018-07-02 12:28 | RAD ---
Date of service: 07/02/2018 HISTORY: Weakness COMPARISON: 01/23/2014. TECHNIQUE: Chest PA and lateral FINDINGS: LINES AND TUBES: None. LUNG AND PLEURA: The lungs are hyperinflated and there is peribronchial thickening with chronic changes in both lungs. No pleural effusion or pneumothorax. HEART AND MEDIASTINUM: The heart is not enlarged. No aortic atherosclerotic calcifications present. The hilar and mediastinal contours are within normal limits. SKELETAL STRUCTURES: The bony structures are within normal limits for the patient's age. VISUALIZED UPPER ABDOMEN: Normal. OTHER FINDINGS: None. IMPRESSION: No active pulmonary disease. COPD.
[2018-07-02 12:35] LABS: ALB/GLOB RATIO 1.5 (1.0-2.1); ALBUMIN 4.5 g/dL (3.5-5.0); ALT/SGPT 27 U/L (9-52); AST/SGOT 46 U/L (14-36); BLOOD UREA NITROGEN 24 mg/dL (7-17); CALCIUM 10.4 mg/dl (8.6-10.4); GFR NON-AFRICAN AMERICAN 31
--- NOTE | 2018-07-02 13:10 | CT ---
Date of service: 07/02/2018 PROCEDURE: CT HEAD WITHOUT CONTRAST. HISTORY: weak COMPARISON: Comparison is made with 11/19/2016 TECHNIQUE: Axial computed tomography images were obtained through the head/brain without intravenous contrast. Radiation dose: Total exam DLP = 990.41 mGy-cm. This CT exam was performed using one or more of the following dose reduction techniques: Automated exposure control, adjustment of the mA and/or kV according to patient size, and/or use of iterative reconstruction technique. FINDINGS: HEMORRHAGE: No intracranial hemorrhage. BRAIN: No mass effect or edema. Mild volume loss is again noted. Moderate to extensive white matter changes are again noted suggestive of chronic microvascular ischemic disease. No CT evidence of acute territorial infarct. VENTRICLES: Unremarkable. No hydrocephalus. CALVARIUM: Unremarkable. PARANASAL SINUSES: Unremarkable as visualized. No significant inflammatory changes. MASTOID AIR CELLS: Unremarkable as visualized. No inflammatory changes. OTHER FINDINGS: None. IMPRESSION: No evidence of acute intracranial hemorrhage intracranial collection mass effect or midline shift. No CT evidence of acute territorial infarct. Volume loss and white matter changes suggestive of chronic microvascular ischemic disease.
[2018-07-02] MEDS ORDERED: Sodium Chloride 0.9% 1,000 ML IV SCH (18:15)
--- NOTE | 2018-07-02 18:28 | C.PDOC ---
History Of Present Illness 82 year old female, whose past medical history includes CVA, DM, HTN, previous stroke, presents to the ED for evaluation after having issues with balance for the past 3 days or "even longer." Patient states she has been needing to hold onto thinks when walking. Patient reports frontal headache which developed yesterday, but she thinks this may be caused by sinus. Patient states she has chronic tingling in the tips of the fingers of her left hand and feels it's worsened over the past 3 days. Patient was evaluated by clinic doctor today (a new doctor for her), who found she had a facial droop and advised her to come to the ED for further evaluation. Patient states her face looks okay to her (son at bedside states the same) and denies chest pain, shortness of breath, neck pain, nausea and vomiting. denies falls or injuries. Chief Complaint (Nursing): Weakness/Neurological Deficit History Per: Patient History/Exam Limitations: no limitations Current Symptoms Are (Timing): Still Present Past Medical History Reviewed: Historical Data, Nursing Documentation, Vital Signs Vital Signs: Last Vital Signs Temp 97.3 F L 07/02/18 14:56 Pulse 60 07/02/18 14:56 Resp 16 07/02/18 14:56 BP 96/56 L 07/02/18 14:56 Pulse Ox 99 07/02/18 14:56 - Medical History PMH: HTN, Hypercholesterolemia, Hypothyroidism Surgical History: No Surg Hx - [facility] Procedures DRESSING TECHNIQUES TREATMENT USING ASSIST EQUIPMENT (11/21/16) EXERCISE TRMT MUSCULOSK LOW BACK/LE W ASSIST EQUIP (11/21/16) GAIT TRAINING/AMBULAT TREATMENT USING ASSIST EQUIPMENT (11/21/16) HOME MANAGEMENT TREATMENT USING ASSIST EQUIPMENT (11/21/16) Family History: States: Unknown Family Hx - Social History Hx Alcohol Use: No Hx Substance Use: No - Immunization History Hx Tetanus Toxoid Vaccination: Yes Hx Influenza Vaccination: Yes Hx Pneumococcal Vaccination: Yes Review Of Systems Eyes: Negative for: Vision Change Neurological: Positive for: Headache Physical Exam - Physical Exam Appears: Non-toxic, No Acute Distress Skin: Normal Color, Warm, Dry Head: Atraumatic, Normacephalic Eye(s): bilateral: Normal Inspection Oral Mucosa: Moist Neck: Supple Chest: Symmetrical, No Deformity, No Tenderness Cardiovascular: Rhythm Regular, No Murmur Respiratory: Normal Breath Sounds, No Rales, No Rhonchi, No Wheezing Extremity: Normal ROM, Capillary Refill (less than 2 seconds ) Neurological/Psych: Oriented x3, Normal Speech, Normal Cognition, Normal Cranial Nerves, Normal Motor, Normal Sensation, Other (no pronator drift) Gait: Unsteady Other Neurological Findings: No Other (facial droop ) ED Course And Treatment - Laboratory Results Result Diagrams: 07/02/18 12:12 07/02/18 12:12 Lab Results: Troponin I < 0.0120 ng/mL (0.00-0.120) 07/02/18 12:12 Total Bilirubin 0.4 mg/dL (0.2-1.3) 07/02/18 12:12 AST 46 U/L (14-36) H 07/02/18 12:12 ALT 27 U/L (9-52) 07/02/18 12:12 Alkaline Phosphatase 72 U/L (38-126) 07/02/18 12:12 Total Protein 7.4 g/dL (6.3-8.3) 07/02/18 12:12 Albumin 4.5 g/dL (3.5-5.0) 07/02/18 12:12 Globulin 2.9 gm/dL (2.2-3.9) 07/02/18 12:12 Albumin/Globulin Ratio 1.5 (1.0-2.1) 07/02/18 12:12 O2 Sat by Pulse Oximetry: 99 (on RA) Pulse Ox Interpretation: Normal - Radiology CXR: Viewed By Me, Read By Radiologist CXR Interpretation: Yes: No Acute Disease, COPD Medical Decision Making Medical Decision Making: Plan CT head, cxr, labs. CXR shows COPD, CT brain negative. Labs BUN 24, Cr 1.6. Results d/w pt. Plan admit patient for further evaluation and management. Patient agreeable w/POC. Disposition Counseled Patient/Family Regarding: Studies Performed, Diagnosis - Disposition Disposition: HOSPITALIZED Disposition Time: 14:30 Condition: STABLE - Clinical Impression Clinical Impression: Gait disturbance - Scribe Statement The provider has reviewed the documentation as recorded by the Scribe (Gillian Harrell) Provider Attestation: All medical record entries made by the Scribe were at my direction and personally dictated by me. I have reviewed the chart and agree that the record accurately reflects my personal performance of the history, physical exam, medical decision making, and the department course for this patient. I have also personally directed, reviewed, and agree with the discharge instructions and disposition.
--- NOTE | 2018-07-02 22:05 | CP.PCM.HP ---
Present on Admission - Present on Admission Any Indicators Present on Admission: No Past Patient History - Infectious Disease Hx of Infectious Diseases: None - Past Medical History & Family History Past Medical History?: Yes - Past Social History Smoking Status: Former Smoker - CARDIAC Hx Hypercholesterolemia: Yes Hx Hypertension: Yes - NEUROLOGICAL Hx Neurological Disorder: Yes HX Cerebrovascular Accident: Yes (x2) - ENDOCRINE/METABOLIC Hx Diabetes Mellitus Type 2: Yes Hx Hypothyroidism: Yes - MUSCULOSKELETAL/RHEUMATOLOGICAL Hx Falls: No - PSYCHIATRIC Hx Substance Use: No - SURGICAL HISTORY Hx Cardiac Catheterization: Yes (stents) Hx Vascular Access Device: Yes Other/Comment: Removal of R kidney - ANESTHESIA Hx Anesthesia: Yes Hx Anesthesia Reactions: No Hx Malignant Hyperthermia: No Meds Allergies/Adverse Reactions: Allergies Allergy/AdvReac Type Severity Reaction Status Date / Time FISH Allergy Verified 11/19/16 10:28 Penicillins Allergy Verified 11/19/16 10:28 Results - Vital Signs Recent Vital Signs: Last Vital Signs Temp 98.0 F 07/02/18 21:25 Pulse 76 07/02/18 21:25 Resp 20 07/02/18 21:25 BP 108/65 07/02/18 21:25 Pulse Ox 99 07/02/18 21:25 - Labs Result Diagrams: 07/02/18 12:12 07/02/18 12:12 Labs: Laboratory Results - last 24 hr 07/02/18 07/02/18 07/02/18 11:35 12:12 12:12 WBC 5.3 RBC 4.60 Hgb 14.6 Hct 44.1 MCV 95.9 D MCH 31.8 H MCHC 33.2 RDW 14.0 Plt Count 192 MPV 8.5 Neut % (Auto) 41.4 L Lymph % (Auto) 40.0 Carter % (Auto) 13.6 H Eos % (Auto) 4.3 H Baso % (Auto) 0.7 Neut # (Auto) 2.2 Lymph # (Auto) 2.1 Carter # (Auto) 0.7 Eos # (Auto) 0.2 Baso # (Auto) 0.0 Sodium 138 Potassium 4.8 Chloride 108 H Carbon Dioxide 19 L Anion Gap 16 BUN 24 H Creatinine 1.6 H Est GFR ( Amer) 38 Est GFR (Non-Af Amer) 31 POC Glucose (mg/dL) 105 Random Glucose 97 Calcium 10.4 Total Bilirubin 0.4 AST 46 H ALT 27 Alkaline Phosphatase 72 Troponin I < 0.0120 Total Protein 7.4 Albumin 4.5 Globulin 2.9 Albumin/Globulin Ratio 1.5 07/02/18 21:45 WBC RBC Hgb Hct MCV MCH MCHC RDW Plt Count MPV Neut % (Auto) Lymph % (Auto) Carter % (Auto) Eos % (Auto) Baso % (Auto) Neut # (Auto) Lymph # (Auto) Carter # (Auto) Eos # (Auto) Baso # (Auto) Sodium Potassium Chloride Carbon Dioxide Anion Gap BUN Creatinine Est GFR ( Amer) Est GFR (Non-Af Amer) POC Glucose (mg/dL) 151 H Random Glucose Calcium Total Bilirubin AST ALT Alkaline Phosphatase Troponin I Total Protein Albumin Globulin Albumin/Globulin Ratio
[2018-07-02] MEDS: (Novolin R) Insulin Human Regular 100 units/ml vial SC SCH (23:00)
[2018-07-03] MEDS: Dextrose 5%/0.9% NS 1,000 ML IV SCH ×2 (00:17→08:20)
--- NOTE | 2018-07-03 03:46 | HP ---
CHIEF COMPLAINT: Syncope. HISTORY OF PRESENT ILLNESS: This is an 82-year-old -[place] female with history of type 2 diabetes, hypertension, hyperlipidemia, coronary artery disease, status post stent, cerebrovascular accident in the past and in her usual status of health. She is ambulatory and independent in activities of daily living. She is on multiple medications. She is being followed up by private medical doctor in community. The patient is compliant with her diet, medications, and followup. Up-to-date with her medications and testing, in her usual status of health. According to the patient, last three days she is having difficulty maintaining her balance. According to the patient when she walks, her legs are unsteady. She is unable to have a control on her steps. Along with that, she is lightheaded, dizzy, weak, and sometimes vertiginous. She is more dizzy when she stands up. She is more dizzy when she walks, and she cannot even walk up to a block. The patient denies any chest pain. She has palpitations. She has weakness. She denies any history of polyuria, polydipsia, polyphagia. She denies any history of hematuria, pyuria. She denies any sneezing, itchy eyes, itchy nose. The patient was evaluated by her PMD, and he suspected a facial droop, and she was referred to emergency room. According to the patient, she does not have any neck pain. She denies any history of head injury, fall, loss of consciousness. There is tingling and numbness in the tips of the fingers and toes. She denies any back pain, hip pain. She denies any history of dysuria, hematuria, pyuria. She denies any history of hematemesis, melena, or hematochezia. She denies any history of skin rash. She denies any history of bruising. According to the patient, mostly she is dizzy when she is active and sometimes when she pinches her finger for blood sugar monitoring, she cannot get blood. Her hands are always cold, pale. ALLERGIES: PENICILLIN, SHELLFISH. SOCIAL HISTORY: She is nonsmoker, non-ETOH user. CURRENT MEDICATIONS: Trulicity, Lipitor, Synthroid, ferrous sulfate, aspirin, Plavix, Benicar. PAST MEDICAL HISTORY: Hypertension, hyperlipidemia, type 2 diabetes, and coronary artery disease, status post stent several years ago. FAMILY HISTORY: Noncontributory. PHYSICAL EXAMINATION: GENERAL: An elderly female, not in distress. VITAL SIGNS: Blood pressure is 107/56, pulse 74, respiratory rate 15, temperature 97.9. SKIN: Dry. Poor turgor. No bruises. No purpura. No petechiae. Her skin in the hand looks pale. HEENT: Atraumatic, normocephalic. Negative pallor. Negative jaundice. Extraocular movements are intact. NECK: Supple. No JVD. No lymph node. No thyromegaly. No carotid bruits. CHEST WALL: Bilateral symmetrical expansion. No tenderness. No deformity. LUNGS: Bilaterally clear. No rales. No rhonchi. CARDIOVASCULAR SYSTEM: PMI not localized. S1 and S2. Regular. No heave. No thrill. ABDOMEN: Soft and nontender. Bowel sounds are positive. RECTAL: No masses. No bleed. EXTREMITIES: Cold and no clubbing, cyanosis, edema. CENTRAL NERVOUS SYSTEM: Awake, alert, oriented x3. Cranial nerves II through XII are normal. Power 5/5 x4. Plantars are downgoing. Unable to test gait because of dizziness. ASSESSMENT: 1. Dizziness. Rule out hypotension. Rule out hypovolemia. It could be iatrogenic due to drop in blood pressure from excessive use of antihypertensives. Rule out cardiac arrhythmia. Rule out coronary ischemia. 2. Hypertension with blood pressure being low. 3. Chronic kidney disease. Rule out acute kidney injury. 4. Type 2 diabetes. PLAN: Neuro check. Fall, seizure precaution. Neurology evaluation. Cut down blood pressure medication and IV hydration. Repeat labs. Detailed orders are written, and the patient seen and examined. The patient will be followed up closely. Franco Cano MD
[2018-07-03] MEDS ORDERED: Levothyroxine 75 MCG TAB PO SCH (06:30)
[2018-07-03] MEDS: (Novolin R) Insulin Human Regular 100 units/ml vial SC SCH ×3 (08:05→17:10)
[2018-07-03] MEDS ORDERED: Metoprolol Succinate 25 mg XL Tab PO SCH (10:00)
[2018-07-03] MEDS: Enoxaparin 40 mg Syringe SC SCH (11:02)
--- NOTE | 2018-07-03 15:50 | MRI ---
Date of service: 07/03/2018 PROCEDURE: MRI BRAIN WITHOUT CONTRAST HISTORY: cva COMPARISON: MRI brain November 19, 2016, CT scan head yesterday TECHNIQUE: Multiplanar, multisequence MR images of the brain were obtained without intravenous contrast enhancement. FINDINGS: HEMORRHAGE: None DWI: Diffusion-weighted imaging shows no evidence of restricted diffusion to suggest recent infarct. BRAIN PARENCHYMA: No mass effect or edema. There is once again evidence of cerebral atrophy and moderate areas of signal abnormality in the periventricular deep white matter tracts consistent with microvascular small-vessel changes. No new cortical effacement is seen. No new extra-axial collection is identified. VENTRICLES: Unremarkable. No hydrocephalus. CRANIUM: Unremarkable. ORBITS: Grossly unremarkable. PARANASAL SINUSES/MASTOIDS: Mild mucosal changes are seen in the sinuses. VASCULAR SYSTEM: Skull base flow voids intact. OTHER FINDINGS: Cervicomedullary junction is unremarkable. No tonsillar ectopia is seen. No sellar masses are noted. IMPRESSION: No evidence of recent infarct or intracranial hemorrhage. Moderate microvascular small-vessel changes in the white matter tracts with small underlying lacunar infarcts not fully excluded.
--- NOTE | 2018-07-03 16:03 | CP.PCM.CON ---
History of Present Illness - History of Present Illness History of Present Illness: Neurology Consultation Note: Consult requested by Dr. Cano Mrs. Samayoa is an 82-year-old woman with a past medical history of DM, HTN, previous stroke, who was sent to the ED by her PMD after he noticed a left facial droop. The patient complains of difficulty with ambulation and needing to hold on to object for support. She did not have a facial droop in the ED. MRI of the brain was done and did not show any acute infarct. She did have diffuse white matter disease, but mostly in the anterior circulation. The patient states that her issues with walking have been going on for nearly a week. Review of Systems - Constitutional Constitutional: As Per HPI - EENT Eyes: absent: As Per HPI, Blind Spots, Blurred Vision, Change in Vision, Decreased Night Vision, Diplopia, Discharge, Dry Eye, Exophthalmos, Floaters, Irritation, Itchy Eyes, Loss of Peripheral Vision, Pain, Photophobia, Requires Corrective Lenses, Sees Flashes, Spots in Vision, Tunnel Vision, Other Visual Disturbances, Loss of Vision, Other Ears: absent: As Per HPI, Decreased Hearing, Ear Discharge, Ear Pain, Tinnitus, Abnormal Hearing, Disequilibrium, Dizziness, Other Nose/Mouth/Throat: absent: As Per HPI, Epistaxis, Nasal Congestion, Nasal Discharge, Nasal Obstruction, Nasal Trauma, Nose Pain, Post Nasal Drip, Sinus Pain, Sinus Pressure, Bleeding Gums, Change in Voice, Dental Pain, Dry Mouth, D ysphagia, Halitosis, Hoarsness, Lip Swelling, Mouth Lesions, Mouth Pain, Odynophagia, Sore Throat, Throat Swelling, Tongue Swelling, Facial Pain, Neck Pain, Neck Mass, Other - Cardiovascular Cardiovascular: absent: As Per HPI, Acrocyanosis, Chest Pain, Chest Pain at Rest, Chest Pain with Activity, Claudication, Diaphoresis, Dyspnea, Dyspnea on Exertion, Edema, Irregular Heart Rhythm, Pain Radiating to Arm/Neck/Jaw, Leg Edema, Leg Ulcers, Lightheadedness, Orthopnea, Palpitations, Paroxysmal Nocturnal Dyspnea, Pedal Edema, Radiating Pain, Rapid Heart Rate, Slow Heart Rate, Syncope, Other - Respiratory Respiratory: absent: As Per HPI, Cough, Dyspnea, Hemoptysis, Dyspnea on Exertion, Wheezing, Snoring, Stridor, Pain on Inspiration, Chest Congestion, Excessive Mucous Production, Change in Mucous Color, Pain with Coughing, Other - Gastrointestinal Gastrointestinal: absent: As Per HPI, Abdominal Pain, Belching, Bloating, Change in Bowel Habits, Change in Stool Character, Coffee Ground Emesis, Constipation, Cramping, Diarrhea, Dyspepsia, Dysphagia, Early Satiety, Excessive Flatus, Fecal Incontinence, Heartburn, Hematemesis, Hematochezia, Loose Stools, Melena, Nausea, Odynophagia, Temesmus, Vomiting, Other - Musculoskeletal Musculoskeletal: absent: As Per HPI, Abnormal Gait, Arthralgias, Atrophy, Back Pain, Deformity, Joint Swelling, Limited Range of Motion, Loss of Height, Muscle Cramps, Muscle Weakness, Myalgias, Neck Pain, Numbness, Radiating Pain into Limb, Stiffness, Tingling, Other - Integumentary Integumentary: absent: As Per HPI, Acne, Alopecia, Bleeding Lesions, Change in Hair, Change in Nails, Change in Pigmentation, Changing Lesions, Dry Skin, Erythema, Furuncle, Hirsutism, Lesions, New Lesions, Non-Healing Lesions, Photosensitivity, Pruritus, Rash, Skin Pain, Skin Ulcer, Sores, Striae, Swelling, Unusual Bruising, Wounds, Jaundice, Other - Neurological Neurological: As Per HPI - Psychiatric Psychiatric: absent: As Per HPI, Abnormal Sleep Pattern, Anhedonia, Anxiety, Auditory Hallucinations, Behavioral Changes, Change in Appetite, Change in Libido, Confusion, Depression, Difficulty Concentrating, Hallucinations, Homicidal Ideation, Hopelessness, Irritability, Memory Loss, Mood Swings, Panic Attacks, Paranoia, Suicidal Ideation, Visual Hallucinations, Tactile Hallucinations, Other Past Patient History - Infectious Disease Hx of Infectious Diseases: None - Past Medical History & Family History Past Medical History?: Yes - Past Social History Smoking Status: Former Smoker - CARDIAC Hx Hypercholesterolemia: Yes Hx Hypertension: Yes - NEUROLOGICAL Hx Neurological Disorder: Yes HX Cerebrovascular Accident: Yes (x2) - ENDOCRINE/METABOLIC Hx Diabetes Mellitus Type 2: Yes Hx Hypothyroidism: Yes - MUSCULOSKELETAL/RHEUMATOLOGICAL Hx Falls: No - PSYCHIATRIC Hx Substance Use: No - SURGICAL HISTORY Hx Cardiac Catheterization: Yes (stents) Hx Vascular Access Device: Yes Other/Comment: Removal of R kidney - ANESTHESIA Hx Anesthesia: Yes Hx Anesthesia Reactions: No Hx Malignant Hyperthermia: No Meds Allergies/Adverse Reactions: Allergies Allergy/AdvReac Type Severity Reaction Status Date / Time FISH Allergy Verified 11/19/16 10:28 Penicillins Allergy Verified 11/19/16 10:28 - Medications Medications: Current Medications Acetaminophen (Tylenol 325mg Tab) 650 mg PO Q4 PRN PRN Reason: pain Last Admin: 07/03/18 11:06 Dose: 650 mg Aspirin (Aspirin Chewable) 81 mg PO DAILY [facility] Last Admin: 07/03/18 11:02 Dose: 81 mg Clopidogrel Bisulfate (Plavix) 75 mg PO DAILY [facility] Last Admin: 07/03/18 11:01 Dose: 75 mg Enoxaparin Sodium (Lovenox) 40 mg SC DAILY [facility] Last Admin: 07/03/18 11:02 Dose: 40 mg Ferrous Sulfate (Feosol) 325 mg PO BID [facility] Last Admin: 07/03/18 11:06 Dose: 325 mg Dextrose/Sodium Chloride (Dextrose 5%/0.9% Ns 1000 Ml) 1,000 mls @ 100 mls/hr IV .Q10H [facility] Last Admin: 07/03/18 08:20 Dose: Not Given Insulin Human Regular (Novolin R) 0 unit SC ACHS [facility]; Protocol Last Admin: 07/03/18 12:15 Dose: Not Given Levothyroxine Sodium (Synthroid) 50 mcg PO DAILY@0630 [facility] Rosuvastatin Calcium (Crestor) 5 mg PO DIN [facility] Physical Exam - Constitutional Appears: Well - Head Exam Head Exam: ATRAUMATIC, NORMAL INSPECTION, NORMOCEPHALIC - Eye Exam Eye Exam: EOMI, Normal appearance, PERRL Pupil Exam: NORMAL ACCOMODATION, PERRL - ENT Exam ENT Exam: Mucous Membranes Moist, Normal Exam - Neck Exam Neck exam: Positive for: Normal Inspection - Respiratory Exam Respiratory Exam: Clear to Auscultation Bilateral, NORMAL BREATHING PATTERN - Cardiovascular Exam Cardiovascular Exam: REGULAR RHYTHM, +S1, +S2 - GI/Abdominal Exam GI & Abdominal Exam: Normal Bowel Sounds, Soft. absent: Tenderness - Extremities Exam Extremities exam: Positive for: normal inspection - Back Exam Back exam: NORMAL INSPECTION - Neurological Exam Neurological exam: Abnormal Gait, Alert, CN II-XII Intact, Oriented x3, Reflexes Normal Additional comments: Slight right pronator drift noted, otherwise non-focal exam. Gait is wide- based, but not ataxic - Psychiatric Exam Psychiatric exam: Normal Affect, Normal Mood - Skin Skin Exam: Dry, Intact, Normal Color, Warm Results - Vital Signs Recent Vital Signs: Last Vital Signs Temp 97.8 F 07/03/18 07:15 Pulse 64 07/03/18 08:00 Resp 20 07/03/18 07:15 BP 130/84 07/03/18 07:15 Pulse Ox 96 07/03/18 07:15 - Labs Result Diagrams: 07/02/18 12:12 07/02/18 12:12 Labs: Laboratory Results - last 24 hr 07/02/18 07/02/18 07/02/18 11:35 21:45 22:47 POC Glucose (mg/dL) 105 151 H TSH 3rd Generation < 0.02 L Assessment & Plan (1) Gait disturbance Assessment and Plan: MRI of the brain does not show any acute infarct, but vascular imaging should be performed with either an MRA or a CTA of the head/neck for further evaluation of the vertebrobasilar system. Continue aspirin/plavix and crestor. PT/OT is recommended. Thank you for this consultation. Status: Acute
--- NOTE | 2018-07-03 21:32 | CP.PCM.PN ---
Subjective - Date & Time of Evaluation Date of Evaluation: 07/03/18 Time of Evaluation: 13:00 - Subjective Subjective: dictated Objective - Vital Signs/Intake and Output Vital Signs (last 24 hours): Temp Pulse Resp BP Pulse Ox 98 F 62 18 120/59 L 100 07/03/18 15:41 07/03/18 15:41 07/03/18 15:41 07/03/18 15:41 07/03/18 15:41 - Medications Medications: Current Medications Acetaminophen (Tylenol 325mg Tab) 650 mg PO Q4 PRN PRN Reason: pain Last Admin: 07/03/18 21:20 Dose: 650 mg Aspirin (Aspirin Chewable) 81 mg PO DAILY [facility] Last Admin: 07/03/18 11:02 Dose: 81 mg Clopidogrel Bisulfate (Plavix) 75 mg PO DAILY [facility] Last Admin: 07/03/18 11:01 Dose: 75 mg Enoxaparin Sodium (Lovenox) 40 mg SC DAILY [facility] Last Admin: 07/03/18 11:02 Dose: 40 mg Ferrous Sulfate (Feosol) 325 mg PO BID [facility] Last Admin: 07/03/18 18:06 Dose: 325 mg Dextrose/Sodium Chloride (Dextrose 5%/0.9% Ns 1000 Ml) 1,000 mls @ 100 mls/hr I V .Q10H [facility] Last Admin: 07/03/18 08:20 Dose: Not Given Insulin Human Regular (Novolin R) 0 unit SC [facility]; Protocol Last Admin: 07/03/18 17:10 Dose: Not Given Levothyroxine Sodium (Synthroid) 50 mcg PO DAILY@0630 [facility] Rosuvastatin Calcium (Crestor) 5 mg PO DIN [facility] - Labs Labs: 07/02/18 12:12 07/02/18 12:12
--- NOTE | 2018-07-04 02:32 | PN ---
DATE: 07/03/2018 SUBJECTIVE: The patient is more alert, still dizzy. MRI is negative. No fever. No chills. PHYSICAL EXAMINATION: VITAL SIGNS: Blood pressure 120/59, pulse 62, respiratory rate 18, temperature 98. LUNGS: Clear. CARDIOVASCULAR SYSTEM: S1 and S2, regular. ABDOMEN: Soft. ASSESSMENT: 1. Hypertension, poorly controlled with blood pressure being low. The patient is off antihypertensive, and her blood pressure is good. 2. Hyperthyroidism, which is due to higher dose of Synthroid. We will cut down Synthroid to daily. 3. Dehydration. PLAN: Continue current medication. Monitor the patient. Franco Cano MD
[2018-07-04] MEDS: Levothyroxine 50 MCG TAB PO SCH (05:43)
[2018-07-04] MEDS: Dextrose 5%/0.9% NS 1,000 ML IV SCH ×4 (05:43→23:01)
[2018-07-04] MEDS: (Novolin R) Insulin Human Regular 100 units/ml vial SC SCH ×5 (08:10→22:40)
[2018-07-04] MEDS: Enoxaparin 40 mg Syringe SC SCH (10:42)
--- NOTE | 2018-07-04 23:21 | CP.PCM.PN ---
Subjective - Date & Time of Evaluation Date of Evaluation: 07/04/18 Time of Evaluation: 19:00 - Subjective Subjective: dictated Objective - Vital Signs/Intake and Output Vital Signs (last 24 hours): Temp Pulse Resp BP Pulse Ox 97.6 F 67 18 148/80 99 07/04/18 15:56 07/04/18 16:00 07/04/18 15:56 07/04/18 15:56 07/04/18 16:55 - Medications Medications: Current Medications Acetaminophen (Tylenol 325mg Tab) 650 mg PO Q4 PRN PRN Reason: pain Last Admin: 07/04/18 20:31 Dose: 650 mg Aspirin (Aspirin Chewable) 81 mg PO DAILY [facility] Last Admin: 07/04/18 10:43 Dose: 81 mg Clopidogrel Bisulfate (Plavix) 75 mg PO DAILY [facility] Last Admin: 07/04/18 10:42 Dose: 75 mg Enoxaparin Sodium (Lovenox) 40 mg SC DAILY [facility] Last Admin: 07/04/18 10:42 Dose: 40 mg Ferrous Sulfate (Feosol) 325 mg PO BID [facility] Last Admin: 07/04/18 20:29 Dose: 325 mg Dextrose/Sodium Chloride (Dextrose 5%/0.9% Ns 1000 Ml) 1,000 mls @ 100 mls/hr I V .Q10H [facility] Last Admin: 07/04/18 23:01 Dose: 100 mls/hr Insulin Human Regular (Novolin R) 0 unit SC ACHS [facility]; Protocol Last Admin: 07/04/18 22:40 Dose: Not Given Levothyroxine Sodium (Synthroid) 50 mcg PO DAILY@0630 [facility] Last Admin: 07/04/18 05:43 Dose: 50 mcg Rosuvastatin Calcium (Crestor) 5 mg PO DIN [facility] - Labs Labs: 07/02/18 12:12 07/02/18 12:12
[2018-07-05 01:54] VITALS: RESP 20
--- NOTE | 2018-07-05 03:44 | PN ---
DATE: 07/04/2018 SUBJECTIVE: The patient is feeling better, more alert, moving around. Less dizzy. No chest pain. No nausea or vomiting. PHYSICAL EXAMINATION: VITAL SIGNS: Blood pressure 148/80, pulse 59, respiratory rate 18, temperature 97.6. LUNGS: Clear. No rales. No rhonchi. CARDIOVASCULAR SYSTEM: S1 and S2, regular. ABDOMEN: Soft, nontender. Bowel sounds are positive. ASSESSMENT: 1. Dizziness, near-syncope. 2. Hypertension. 3. Type 2 diabetes. 4. Hyperlipidemia. PLAN: Medical management. Keep the patient off antihypertensive. Monitor blood pressure. Diet and exercise to control blood pressure. Monitor the patient. Franco Cano MD
[2018-07-05] MEDS: Levothyroxine 50 MCG TAB PO SCH (06:15)
[2018-07-05] MEDS: (Novolin R) Insulin Human Regular 100 units/ml vial SC SCH ×2 (08:06→12:37)
[2018-07-05] MEDS: Dextrose 5%/0.9% NS 1,000 ML IV SCH (10:00)
[2018-07-05] MEDS: Enoxaparin 40 mg Syringe SC SCH (10:14)
--- NOTE | 2018-07-05 13:28 | MRI ---
Date of service: 07/05/2018 PROCEDURE: Magnetic Resonance Angiography Brain HISTORY: VBI COMPARISON: Correlation made with concurrent MRA of the neck and prior MRI of the brain 07/03/2018. TECHNIQUE: 3D time of flight MR angiography of the intracranial arteries was performed. Rotating maximum intensity projection images were generated. FINDINGS: INTERNAL CAROTID ARTERIES: Unremarkable. The skull base, petrous, cavernous and supraclinoid segments are bilaterally widely patient. ANTERIOR CEREBRAL ARTERIES: Unremarkable. A1 and A2 segments are widely patent. Smaller distal branches unremarkable, as visualized. MIDDLE CEREBRAL ARTERIES: Unremarkable. M1 and M2 segments are widely patent. Perisylvian branches grossly symmetric. POSTERIOR CIRCULATION: There is mild asymmetry of the distal vertebral arteries right-sided which is slightly larger in caliber than the left side which may account for slight diminution in flow seen within the distal left vertebral artery. The basilar artery is patent. There is however a prominent right-sided posterior communicating artery with hypoplasia of the right P1 segment. The remaining visualized posterior cerebral arteries are patent and relatively symmetric. Superior cerebellar arteries are patent so far as can be seen ANEURYSM/ VASCULAR MALFORMATIONS: No evidence of large aneurysm nor vascular malformation. OTHER FINDINGS: None. IMPRESSION: There is mild asymmetry of the vertebral arteries right-sided which is larger in caliber/more dominant than the left side which may account for slight diminution in flow within the distal left vertebral artery. There is also prominent right-sided posterior communicating artery with hypoplasia of the right P1 segment. The remaining intra cerebral vasculature is unremarkable with no evidence of large aneurysm nor vascular malformation.
--- NOTE | 2018-07-05 14:24 | MRI ---
Date of service: 07/05/2018 PROCEDURE: MR Angiography of the neck without contrast HISTORY: VBI COMPARISON: Correlation made with concurrent MR a of the brain and MRI of the brain 07/03/2018. Correlation made with carotid Doppler exam 11/20/2016 TECHNIQUE: 3D [id number] angiography of the neck was performed. Rotating maximum intensity projection images of the cervical carotid and vertebral arteries were generated. The origins of the common carotid arteries were not visualized, which is a limitation inherent to the non-contrast time of flight technique. FINDINGS: RIGHT CAROTID ARTERIES: Common Carotid Artery: Normal. Carotid Bifurcation: Normal. Internal Carotid Artery:Normal. External Carotid Artery (proximal branches): Normal. LEFT CAROTID ARTERIES: Common Carotid Artery: Normal. Carotid Bifurcation: Normal. Internal Carotid Artery:Normal. External Carotid Artery (proximal branches): Normal. VERTEBRAL ARTERIES: There is asymmetry of the vertebral arteries right-sided which is larger in caliber/more dominant than the left side. OTHER FINDINGS: None. IMPRESSION: No evidence of occlusion or significant stenosis of the extracranial cervical circulation.
--- NOTE | 2018-07-05 14:57 | CP.PCM.PN ---
Subjective - Date & Time of Evaluation Date of Evaluation: 07/05/18 Time of Evaluation: 14:53 - Subjective Subjective: Neuro Follow-Up Note: Mrs. Samayoa was evaluated this afternoon at bedside. Son present at bedside. Pt offers no new complaints aside from some numbness to her left hand (pt states she has had this for years since her diabetes diagnosis). She denies h/a, dizziness, visual changes, chest pain, palpitations, sob, cough, abd pain, n/v/ d. Objective - Vital Signs/Intake and Output Vital Signs (last 24 hours): Temp Pulse Resp BP Pulse Ox 97.7 F 61 20 165/72 H 100 07/05/18 07:12 07/05/18 09:00 07/05/18 07:12 07/05/18 07:12 07/05/18 07:12 Intake and Output: 07/05/18 07/05/18 06:59 18:59 Intake Total 800 Balance 800 - Medications Medications: Current Medications Acetaminophen (Tylenol 325mg Tab) 650 mg PO Q4 PRN PRN Reason: pain Last Admin: 07/05/18 08:13 Dose: 650 mg Aspirin (Aspirin Chewable) 81 mg PO DAILY [facility] Last Admin: 07/05/18 10:15 Dose: 81 mg Clopidogrel Bisulfate (Plavix) 75 mg PO DAILY [facility] Last Admin: 07/05/18 10:15 Dose: 75 mg Enoxaparin Sodium (Lovenox) 40 mg SC DAILY [facility] Last Admin: 07/05/18 10:14 Dose: 40 mg Ferrous Sulfate (Feosol) 325 mg PO BID [facility] Last Admin: 07/05/18 10:15 Dose: 325 mg Dextrose/Sodium Chloride (Dextrose 5%/0.9% Ns 1000 Ml) 1,000 mls @ 100 mls/hr IV .Q10H [facility] Last Admin: 07/05/18 10:00 Dose: 100 mls/hr Insulin Human Regular (Novolin R) 0 unit SC ACHS [facility]; Protocol Last Admin: 07/05/18 12:37 Dose: Not Given Levothyroxine Sodium (Synthroid) 50 mcg PO DAILY@0630 [facility] Last Admin: 07/05/18 06:15 Dose: 50 mcg Rosuvastatin Calcium (Crestor) 5 mg PO DIN [facility] - Labs Labs: 07/02/18 12:12 07/02/18 12:12 - Constitutional Appears: Well, Non-toxic, No Acute Distress - Head Exam Head Exam: ATRAUMATIC, NORMAL INSPECTION, NORMOCEPHALIC - Eye Exam Eye Exam: EOMI, Normal appearance, PERRL Pupil Exam: NORMAL ACCOMODATION, PERRL - ENT Exam ENT Exam: Mucous Membranes Moist - Neck Exam Neck Exam: Full ROM, Normal Inspection - Respiratory Exam Respiratory Exam: NORMAL BREATHING PATTERN - Extremities Exam Extremities Exam: Full ROM. absent: Calf Tenderness, Pedal Edema - Back Exam Back Exam: Full ROM - Neurological Exam Neurological Exam: Alert, Awake, CN II-XII Intact, Oriented x3, Reflexes Normal Neuro motor strength exam: Left Upper Extremity: 5, Right Upper Extremity: 5, Left Lower Extremity: 5, Right Lower Extremity: 5 Additional comments: Speech clear, fluid No facial asymmetry FROM to all extremities, no focal weakness. No tremors or abnormal movements. No sensory deficits. - Psychiatric Exam Psychiatric exam: Normal Affect, Normal Mood - Skin Skin Exam: Normal Color Assessment and Plan (1) Ataxia Assessment & Plan: -MRA Neck (07/05/18): unremarkable -MRA Head (07/05/18): There is mild asymmetry of the vertebral arteries right- sided which is larger in caliber/more dominant than the left side which may account for slight diminution in flow within the distal left vertebral artery. There is also prominent right-sided posterior communicating artery with hypoplasia of the right P1 segment. The remaining intra cerebral vasculature is unremarkable with no evidence of large aneurysm nor vascular malformation. -MRI Brain (07/02/18): No evidence of recent infarct or intracranial hemorrhage. Moderate microvascular small-vessel changes in the white matter tracts with small underlying lacunar infarcts not fully excluded. -CT head (07/02/18): No evidence of acute intracranial hemorrhage intracranial collection mass effect or midline shift. No CT evidence of acute territorial infarct. Volume loss and white matter changes suggestive of chronic microvascular ischemic disease. -Pt is neurologically stable for d/c home today. She has been instructed to continue ASA 81 mg PO Daily as well as Plavix 75 mg PO daily at home for secondary stroke prevention. -Follow up with PMD as outpatient. Thank you for this consultation. Corie Larry, MARCO, [employer] Discussed with Dr. Grant Status: Acute
[2018-07-05 16:23] VITALS: BP 175/89; PULSE 88; TEMP 98; O2SAT 96
--- NOTE | 2018-07-05 16:28 | CP.PCM.PN ---
Subjective - Date & Time of Evaluation Date of Evaluation: 07/05/18 Time of Evaluation: 11:45 - Subjective Subjective: Patient seen today , denies any chest pain, sob, dizziness, numbness to the left finger tips still present , not new as per patient vss and labs reviewed - stable Objective - Vital Signs/Intake and Output Vital Signs (last 24 hours): Temp Pulse Resp BP Pulse Ox 98 F 88 20 175/89 H 96 07/05/18 15:00 07/05/18 15:00 07/05/18 15:00 07/05/18 15:00 07/05/18 15:00 Intake and Output: 07/05/18 07/05/18 06:59 18:59 Intake Total 800 700 Balance 800 700 - Medications Medications: Current Medications Acetaminophen (Tylenol 325mg Tab) 650 mg PO Q4 PRN PRN Reason: pain Last Admin: 07/05/18 08:13 Dose: 650 mg Amlodipine Besylate (Norvasc) 5 mg PO DAILY [facility] Aspirin (Aspirin Chewable) 81 mg PO DAILY [facility] Last Admin: 07/05/18 10:15 Dose: 81 mg Clopidogrel Bisulfate (Plavix) 75 mg PO DAILY [facility] Last Admin: 07/05/18 10:15 Dose: 75 mg Enoxaparin Sodium (Lovenox) 40 mg SC DAILY [facility] Last Admin: 07/05/18 10:14 Dose: 40 mg Ferrous Sulfate (Feosol) 325 mg PO BID [facility] Last Admin: 07/05/18 10:15 Dose: 325 mg Dextrose/Sodium Chloride (Dextrose 5%/0.9% Ns 1000 Ml) 1,000 mls @ 100 mls/hr IV .Q10H [facility] Last Admin: 07/05/18 10:00 Dose: 100 mls/hr Insulin Human Regular (Novolin R) 0 unit SC ACHS [facility]; Protocol Last Admin: 07/05/18 12:37 Dose: Not Given Levothyroxine Sodium (Synthroid) 50 mcg PO DAILY@0630 [facility] Last Admin: 07/05/18 06:15 Dose: 50 mcg Rosuvastatin Calcium (Crestor) 5 mg PO DIN [facility] - Labs Labs: 07/02/18 12:12 07/02/18 12:12 Assessment and Plan - Assessment and Plan (Free Text) Assessment: A/P 82 year old female, WITH PMHX OF CVA, DM, HTN, previous stroke, presents to the ED for evaluation after having issues with balance for the past 3 days admitted with gait disturbances patient feels better and dizziness resolved MRI- negative CTA brain - negative Dr. Hartman neurology on board , seen patient today and cleared for discharge from neurology standpoint D/w Dr. wolf cleared for discharge home today and f/.u with Dr. Mohr office in 1 week' Discharge plan discussed with patient who understands and agrees with plan
--- NOTE | 2018-07-05 21:09 | CP.PCM.DIS ---
Provider - Provider Date of Admission: 07/02/18 14:39 Attending physician: Franco Cano MD Consults: 07/02/18 18:01 Neurology Consult Routine Comment: Consulting Provider: Teo Hartman Consulting Physician: Teo Hartman Reason for Consult: VBI 07/02/18 21:52 Social Work Referral Routine Comment: routine Physician Instructions: referral Reason For Exam: claudia score 10 Time Spent in preparation of Discharge (in minutes): 30 Hospital Course - Lab Results Lab Results: Most Recent Lab Values WBC 5.3 K/uL (4.8-10.8) 07/02/18 12:12 RBC 4.60 Mil/uL (3.80-5.20) 07/02/18 12:12 Hgb 14.6 g/dL (11.0-16.0) 07/02/18 12:12 Hct 44.1 % (34.0-47.0) 07/02/18 12:12 MCV 95.9 fL (81.0-99.0) D 07/02/18 12:12 MCH 31.8 pg (27.0-31.0) H 07/02/18 12:12 MCHC 33.2 g/dL (33.0-37.0) 07/02/18 12:12 RDW 14.0 % (11.5-14.5) 07/02/18 12:12 Plt Count 192 K/uL (130-400) 07/02/18 12:12 MPV 8.5 fL (7.2-11.7) 07/02/18 12:12 Neut % (Auto) 41.4 % (50.0-75.0) L 07/02/18 12:12 Lymph % (Auto) 40.0 % (20.0-40.0) 07/02/18 12:12 [place] % (Auto) 13.6 % (0.0-10.0) H 07/02/18 12:12 Eos % (Auto) 4.3 % (0.0-4.0) H 07/02/18 12:12 Baso % (Auto) 0.7 % (0.0-2.0) 07/02/18 12:12 Neut # (Auto) 2.2 K/uL (1.8-7.0) 07/02/18 12:12 Lymph # (Auto) 2.1 K/uL (1.0-4.3) 07/02/18 12:12 H[place] # (Auto) 0.7 K/uL (0.0-0.8) 07/02/18 12:12 Eos # (Auto) 0.2 K/uL (0.0-0.7) 07/02/18 12:12 Baso # (Auto) 0.0 K/uL (0.0-0.2) 07/02/18 12:12 Sodium 138 mmol/L (132-148) 07/02/18 12:12 Potassium 4.8 mmol/L (3.6-5.2) 07/02/18 12:12 Chloride 108 mmol/L (98-107) H 07/02/18 12:12 Carbon Dioxide 19 mmol/L (22-30) L 07/02/18 12:12 Anion Gap 16 (10-20) 07/02/18 12:12 BUN 24 mg/dL (7-17) H 07/02/18 12:12 Creatinine 1.6 mg/dL (0.7-1.2) H 07/02/18 12:12 Est GFR ( Amer) 38 07/02/18 12:12 Est GFR (Non-Af Amer) 31 07/02/18 12:12 POC Glucose (mg/dL) 143 mg/dL (65-110) H 07/05/18 11:20 Random Glucose 97 mg/dL (65-105) 07/02/18 12:12 Calcium 10.4 mg/dl (8.6-10.4) 07/02/18 12:12 Total Bilirubin 0.4 mg/dL (0.2-1.3) 07/02/18 12:12 AST 46 U/L (14-36) H 07/02/18 12:12 ALT 27 U/L (9-52) 07/02/18 12:12 Alkaline Phosphatase 72 U/L (38-126) 07/02/18 12:12 Troponin I < 0.0120 ng/mL (0.00-0.120) 07/02/18 12:12 Total Protein 7.4 g/dL (6.3-8.3) 07/02/18 12:12 Albumin 4.5 g/dL (3.5-5.0) 07/02/18 12:12 Globulin 2.9 gm/dL (2.2-3.9) 07/02/18 12:12 Albumin/Globulin Ratio 1.5 (1.0-2.1) 07/02/18 12:12 TSH 3rd Generation < 0.02 mIU/L (0.46-4.68) L 07/02/18 22:47 Discharge Exam - Head Exam Head Exam: ATRAUMATIC, NORMAL INSPECTION, NORMOCEPHALIC Discharge Plan - Discharge Medications Prescriptions: amLODIPine [Norvasc] 5 mg PO DAILY #30 tab Levothyroxine [Synthroid] 50 mcg PO DAILY@0630 #30 tab - Follow Up Plan Condition: STABLE Disposition: HOME/ ROUTINE Instructions: Heart Healthy Diet, Acute Cerebellar Ataxia (DC), Amlodipine, Levothyroxine Additional Instructions: Please follow up with Dr. Mohr office in 1 week please follow up with Dr. Dawkins office - call and make appointment Please continue medication as per med. rec. Referrals: Godfrey Jacob MD [Staff Provider] - Jose Mohr MD [Medical Doctor] -
--- NOTE | 2018-07-06 02:06 | DS ---
DISCHARGE DIAGNOSES: 1. Hypotension, symptomatic. 2. Type 2 diabetes. 3. Hyperlipidemia. HOSPITAL COURSE: This is an 82-year-old female with history of diabetes, hypertension, hyperlipidemia. She is on multiple medications and she was feeling unsteady on her leg, weak, dizzy, tired, fatigued and the patient was admitted to the floor and initial impression was low blood pressure due to her blood pressure medication. The patient never had fever. No sepsis. The patient's blood pressure medications were lowered down and the patient did well. The patient is feeling better. MRI is negative. MRA of the head and neck is negative. The patient is for discharge. Condition upon discharge is stable. She is afebrile. No shortness of breath. PHYSICAL EXAMINATION: VITAL SIGNS: Blood pressure 175/89, pulse 80, respiratory rate 20, and temperature 98. LUNGS: Bilaterally clear. No rales. No rhonchi. CARDIOVASCULAR SYSTEM: S1 and S2. Regular. ABDOMEN: Soft and nontender. Bowel sounds are positive. ASSESSMENT: 1. Symptomatic hypotension. 2. Diabetes. PLAN: Discharge the patient. Monitor the patient. Franco Cano MD
--- NOTE | 2018-07-06 23:04 | CARD ---
APPROVED REPORT Date of service: 07/05/2018 EXAM: Two-dimensional and M-mode echocardiogram with Doppler and color Doppler. Other Information Quality : GoodRhythm : Bradycardia INDICATION CVA/TIA RISK FACTORS Hypertension Hyperlipidemia Diabetes 2D DIMENSIONS IVSd1.0 (0.7-1.1cm)LVDd3.5 (3.9-5.9cm) PWd1.0 (0.7-1.1cm)LA [id number] (18-58mL) LVDs2.2 (2.5-4.0cm)FS (%) 38.2 % LVEF (%)69.5 (>50%)LVEF (Torres's)68 % M-Mode DIMENSIONS Left Atrium (MM)3.74 (2.5-4.0cm)IVSd1.02 (0.7-1.1cm) Aortic Root3.08 (2.2-3.7cm)LVDd3.83 (4.0-5.6cm) Aortic Cusp Exc.1.77 (1.5-2.0cm)PWd1.00 (0.7-1.1cm) FS (%) 45 %LVDs2.09 (2.0-3.8cm) LVEF (%)77 (>50%) Mitral Valve MV E Wwpkwkdf50.4cm/sMV A Vhekcipb737.8cm/sE/A ratio0.7 TDI Lateral E' Peak V7.32cm/sMedial E' Peak V5.25cm/sE/Lateral E'11.0 E/Medial E'15.3 Tricuspid Valve TR Peak Xlicytyw528jd/sTR Peak Gr.33hiQqWMOB50rtOf LEFT VENTRICLE The left ventricle is normal size. There is normal left ventricular wall thickness. Left ventricle systolic function is normal. The Ejection Fraction is >70%. There is normal LV segmental wall motion. Tissue Doppler imaging reveals abnormal left ventricular diastolic dysfunction. RIGHT VENTRICLE The right ventricle is normal size. There is normal right ventricular wall thickness. The right ventricular systolic function is normal. ATRIA The left atrium size is normal. The right atrium size is normal. The discontinuity of the interatrial septum is suggestive of an atrial septal defect. Suggest NANDINI if ASD is strongly suspected. AORTIC VALVE The aortic valve is normal in structure. There is mild aortic regurgitation. There is no aortic valvular stenosis. There is no aortic valvular vegetation. MITRAL VALVE The mitral valve is normal in structure. There is no evidence of mitral valve prolapse. There is no mitral valve stenosis. Mitral regurgitation is mild. TRICUSPID VALVE The tricuspid valve is normal in structure. There is mild tricuspid regurgitation. Right ventricular systolic pressure is estimated at 30-40 mmHg. There is mild pulmonary hypertension. PULMONIC VALVE The pulmonic valve is not well visualized. There is mild pulmonic valvular regurgitation. GREAT VESSELS The aortic root is normal in size. PERICARDIAL EFFUSION There is no significant pericardial effusion. <Conclusion> Left ventricle systolic function is normal. The Ejection Fraction is >70%. Diastolic dysfunction. There is no aortic valvular vegetation. Mitral regurgitation is mild. There is mild tricuspid regurgitation. There is mild pulmonary hypertension. There is mild pulmonic valvular regurgitation.
== END 2018-07-05 17:31 | disposition home or self-care (01) | DRG 315 ==
LOC: C.ER 11:27 → C.9E 14:39 → C.6T 20:04
PROVIDERS: ADMIT Internal Medicine; ATTEND Internal Medicine
DX: I95.9 Hypotension, unspecified (principal); N17.9 Acute kidney failure, unspecified; E86.0 Dehydration; E05.90 Thyrotoxicosis, unspecified without thyrotoxic crisis or storm; E78.00 Pure hypercholesterolemia, unspecified; I25.10 Atherosclerotic heart disease of native coronary artery without angina pectoris; E03.9 Hypothyroidism, unspecified; R55 Syncope and collapse; I12.9 Hypertensive chronic kidney disease with stage 1 through stage 4 chronic kidney disease, or unspecified chronic kidney disease; R29.810 Facial weakness; E78.5 Hyperlipidemia, unspecified; N18.9 Chronic kidney disease, unspecified; Z87.891 Personal history of nicotine dependence; Z86.73 Personal history of transient ischemic attack (TIA), and cerebral infarction without residual deficits; Z95.5 Presence of coronary angioplasty implant and graft; Z88.0 Allergy status to penicillin; E11.22 Type 2 diabetes mellitus with diabetic chronic kidney disease; R27.0 Ataxia, unspecified; Z79.4 Long term (current) use of insulin